=== PATIENT | male | born 1965 | race Caucasian/White ===

== ENCOUNTER 2019-10-06 15:38 | Observation (INO) ==
[2019-10-06] MEDS ORDERED: SODIUM CHLORIDE 0.9% 1,000 ML IV STA (16:22)
[2019-10-06] MEDS ORDERED: MORPHINE 4 MG/1 ML VIAL IV ONE ×2 (16:22→17:25)
[2019-10-06 16:29] LABS: Calcium 8.9 MG/DL (8.5-10.1); Osmolality,Calculated 279.5 MOS/KG (273-304)
[2019-10-06 16:30] LABS: Basophils % 0.3 % (0.0-0.8); Eosinophils # 0.2 10*3/uL (0.0-0.87); Eosinophils % 1.9 % (0.00-10.9); Hematocrit 43.5 VOL% (42.0-52.0); Hemoglobin 14.8 GM/DL (14.0-18.0); Immature Granulocytes % 0.6 %; Immature Granulocytes Absolute 0.07 #; Lymphocytes # 0.6 10*3/uL (1.4-4.0); Lymphocytes % 4.5 % (21.2-54.2); Mean Corpuscular Volume 92.2 FL (87-102); Monocytes % 4.5 % (1.7-12.7); Neutrophils % 88.2 % (38.7-73.9); Platelet Count 246 T/CUMM (130-400); Red Blood Count 4.72 MC/CUMM (3.8-5.5); Red Cell Distribution Width 13.6 % (9.3-17.3); White Blood Count 12.1 T/CUMM (4-12)
[2019-10-06 16:43] LABS: Alanine Aminotransferase 60 U/L (16-61); Albumin 4.3 G/DL (3.4-5.0); Alkaline Phosphatase 67 U/L (45-117); Amylase 39 U/L (25-115); Aspartate Amino Transferase 32 U/L (0-37); Blood Urea Nitrogen 20 MG/DL (7-18); Calcium 9.1 MG/DL (8.5-10.1); Estimated Glom Filtration Rate 57 ML/MIN; Glucose 106 MG/DL (74-106); Osmolality,Calculated 277.7 MOS/KG (273-304); Troponin I < 0.015 NG/ML (0.00-0.045)
[2019-10-06] MEDS ORDERED: ONDANSETRON 4 MG/2 ML VIAL IV STA (16:44)
[2019-10-06 16:46] LABS: PT Patient Result 10.9 SECS (9.8-11.9)
[2019-10-06 17:00] LABS: Eosinophils 2 % (0-10); Lymphocytes 3 % (20-55); Segmented Neutrophils 88 % (50-85); Total Cells Counted 100
[2019-10-06] MEDS ORDERED: MORPHINE 4 MG/1 ML VIAL IV PRN (18:29)
[2019-10-06] MEDS ORDERED: ZALEPLON 5 MG CAPSULE PO PRN (18:29)
[2019-10-06] MEDS ORDERED: DEXTROSE 50% 25 GM/50 ML VIAL IV PRN (18:29)
[2019-10-06] MEDS ORDERED: GLUCAGON 1 MG VIAL IM PRN (18:29)
[2019-10-06] MEDS ORDERED: MECLIZINE 25 MG TABLET PO PRN (18:38)
[2019-10-06] MEDS ORDERED: ALUM/MAG/SIMETH/LIDO VISC 1:1 30 ML BOTTLE PO ONE (19:40)
[2019-10-06] MEDS ORDERED: ALUM/MAG/SIMETH/LIDO VISC 1:1 30 ML BOTTLE PO STA (19:50)
[2019-10-06] MEDS ORDERED: ENOXAPARIN 40 MG/0.4 ML SYRINGE SUBCUT SCH (21:00)
[2019-10-06] MEDS ORDERED: FAMOTIDINE 20 MG TABLET PO SCH (21:00)
[2019-10-06] MEDS: ONDANSETRON 4 MG/2 ML VIAL IV PRN (21:19)
[2019-10-06] MEDS ORDERED: KETOROLAC 15 MG/1 ML VIAL IV ONE (21:45)
[2019-10-06] MEDS ORDERED: HYDROmorphone 2 MG/1 ML VIAL IV PRN (21:46)
[2019-10-06 21:47] LABS: Apearance,Urine Slightly Hazy (Clear); Bacteria,Urine Occasional /HPF (Few); Bilirubin,Urine Negative (Negative); Blood, Urine Negative (Negative); Glucose,Urine (UA) Negative (Negative); Hyaline Casts,Urine 1 /LPF (0-3); Ketones,Urine Negative (Negative); Mucus,Urine Occasional /LPF (Occasional); Nitrite,Urine Negative (Negative); Protein,Urine Negative; RBC,Urine <1 /HPF (0-4); Squamous Epithelial Cell,Urine Occasional /HPF (0-10); Urine Color Yellow (Yellow); Urine Specific Gravity 1.019 (1.001-1.035); Urine Urobilinogen < 2.0 EU/DL (0.2-1.0); WBC,Urine 1 /HPF (0-6)
[2019-10-06 21:52] LABS: Barbiturates Screen,Urine Negative (Negative); Benzodiazepines Screen,Urine Positive (Negative); Cannabinoid Screen,Urine Negative (Negative); Opiate Screen,Urine Positive (Negative); Phencyclidine Screen,Urine Negative (Negative)
[2019-10-07] MEDS ORDERED: LOPERAMIDE 2 MG CAPSULE PO ONE (03:31)
[2019-10-07 07:40] LABS: Basophils % 0.2 % (0.0-0.8); Eosinophils # 0.2 10*3/uL (0.0-0.87); Eosinophils % 3.9 % (0.00-10.9); Hematocrit 35.1 VOL% (42.0-52.0); Immature Granulocytes % 0.3 %; Immature Granulocytes Absolute 0.02 #; Lymphocytes # 0.8 10*3/uL (1.4-4.0); Lymphocytes % 14.1 % (21.2-54.2); Mean Corpuscular HGB Conc 34.5 GM/DL (32-36); Mean Corpuscular Volume 92.6 FL (87-102); Mean Platelet Volume 9.1 FL (9.6-12.0); Monocytes % 7.5 % (1.7-12.7); Red Blood Count 3.79 MC/CUMM (3.8-5.5); Red Cell Distribution Width 13.9 % (9.3-17.3)
[2019-10-07 07:41] LABS: Hemoglobin 12.1 GM/DL (14.0-18.0); White Blood Count 5.8 T/CUMM (4-12)
[2019-10-07 07:42] LABS: Platelet Count 194 T/CUMM (130-400)
[2019-10-07 07:47] LABS: Albumin 3.5 G/DL (3.4-5.0); Bilirubin,Total 2.6 MG/DL (0.2-1.0); Calcium 8.1 MG/DL (8.5-10.1); Osmolality,Calculated 275.8 MOS/KG (273-304); Total Protein 6.3 G/DL (6.4-8.3)
[2019-10-07 07:48] LABS: Risk Ratio 3.62; VLDL CHOLESTEROL 42.8 MG/DL
[2019-10-07] MEDS ORDERED: DOCUSATE SODIUM 100 MG CAPSULE PO SCH (09:00)
[2019-10-07] MEDS ORDERED: LOSARTAN 50 MG TABLET PO SCH (09:00)
[2019-10-07] MEDS ORDERED: OMEGA 3 ACID ETHYL ESTERS 1 GM CAPSULE PO SCH (09:00)
[2019-10-07] MEDS ORDERED: PANTOPRAZOLE 40 MG TABLET PO SCH (09:00)
[2019-10-07] MEDS ORDERED: NIACIN 500 MG TABLET PO SCH (09:00)
[2019-10-07] MEDS ORDERED: hydroCHLOROthiazide 12.5 MG CAPSULE PO SCH (09:00)
[2019-10-07] MEDS ORDERED: ATORVASTATIN 20 MG TABLET PO SCH (09:00)
[2019-10-07] MEDS ORDERED: NEBIVOLOL 10 MG TABLET PO SCH (09:00)
[2019-10-07] MEDS ORDERED: ASPIRIN EC 81 MG TABLET PO SCH (09:00)
[2019-10-07] MEDS ORDERED: ACETAMINOPHEN 325 MG TABLET PO PRN (10:54)
[2019-10-07] MEDS: ONDANSETRON 4 MG/2 ML VIAL IV PRN (12:08)
[2019-10-07 12:50] VITALS: BP 91/64
== END 2019-10-07 17:40 | disposition home or self-care (01) ==
LOC: N.EDINP 15:38 → N.ED 15:38 → N.TELES 20:08
PROVIDERS: ADMIT Family Medicine; ATTEND Family Medicine